=== PATIENT | female | born 1960 | race Caucasian/White ===

== ENCOUNTER → 2024-03-08 08:10 | Outpatient (REF) | payer MEDICARE, SELFPAY | LOC: RAD 08:10 | PROVIDERS: ATTENDING PHYSICIAN Nurse Practitioner | DX: M79.671 Pain in right foot (principal); M79.672 Pain in left foot | CPT/HCPCS: 73630 ==

== ENCOUNTER → 2025-01-17 07:49 | Outpatient (REF) | payer MEDICARE, SELFPAY | LOC: HWRAD 07:49 | PROVIDERS: ATTENDING PHYSICIAN Nurse Practitioner | DX: F17.210 Nicotine dependence, cigarettes, uncomplicated (principal) | CPT/HCPCS: 71271 ==

== ENCOUNTER 2025-02-10 16:59 | Emergency (ER) | payer MEDICARE, SELFPAY ==
[2025-02-10 17:03] VITALS: BP 117/91
[2025-02-10 19:43] VITALS: BMI 22.1
[2025-02-10] MEDS: LIDOCAINE 4% PATCH 1 PATCH TOPICAL (22:32)
[2025-02-10] MEDS: DECADRON 10 MG PO (22:32)
[2025-02-10] MEDS: TORADOL 15 MG IM (22:33)
[2025-02-10] MEDS: VALIUM 5 MG PO (22:34)
--- NOTE | 2025-02-10 22:42 | ED.GENMED ---
History of Present Illness
General
Chief Complaint: Back Pain
Source: patient
Exam Limitations: none
Time Seen by Provider: 02/10/25 21:15
Nursing documentation reviewed up to this point in time: agreed with
History of Present Illness
History of Present Illness:
Patient is a 64-year-old female who presents to the emergency department for evaluation of lower back pain which started yesterday. Patient reports that she was sitting in a metal chair for 3 hours yesterday prior to feeling tightness in her lower
back. Tightness persisted throughout the evening. This morning however patient states she had sudden onset spasming in her lower back while she was seated at work. These 'spasms 'have been coming and going for the past few hours prompting visit
to the emergency department.
Symptoms seem worse in certain positions. Standing and walking sometimes alleviates spasms. She did take ibuprofen at home with minimal improvement in symptoms.
Patient denies any associated fever, abdominal pain, vomiting. She denies any numbness/tingling in lower extremities. No saddle paresthesias. No weakness in lower extremities. Patient denies any recent trauma. No history of IV drug use. She
has not noticed any rash.
Past History
Past History
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
ED Past Surgical History: None
Review of Systems
Review of Systems
Allergies reviewed?: Yes
All Other Systems: ROS reviewed and negative except as documented in HPI and ROS
Phy Exam
Physical Exam
Physical Exam:
Vitals: Mildly hypertensive, otherwise vital signs stable. Afebrile
General: Patient is moderately uncomfortable due to pain
Skin: Warm and dry, no rashes or lesions
Head: Normocephalic, atraumatic
Eyes: Sclera nonicteric.
Throat: Protecting airway
Neck: Normal ROM, no cervical spine tenderness, no meningismus
Cardiac: Regular rate and rhythm, no murmurs.
Pulm: Normal respiratory effort, no wheezes, rales, rhonchi heard on exam
.
Abdomen: No abdominal tenderness.
Back: Paralumbar muscle spasm R>L. No midline spinal tenderness. No rash or ecchymoses.
Extremities: No evidence of cyanosis or edema. Strength 5/5 in bilateral lower extremities. Sensation intact.
Neuro: AAOx3. Grossly intact
Psychiatric: Normal affect.
Course
Orders/Labs/Results
Orders:
Orders
02/10/25 21:53
Dexamethasone [Decadron] 10 mg PO NOW STA
Diazepam [Valium] 5 mg PO NOW STA
Ketorolac [Toradol] 15 mg IM NOW STA
Lidocaine [Lidocaine 4% Patch] 1 patch TOPICAL NOW STA
Apply Lidocaine patch(s) to:: lower back
Vital Signs
Initial and Last Documented VS:
Initial Vital Signs
Temp Pulse Resp BP Pulse Ox
98.5 F 73 18 117/91 98
02/10/25 17:03 02/10/25 17:03 02/10/25 17:03 02/10/25 17:03 02/10/25 17:03
Last Documented Vital Signs
Temp Pulse Resp BP Pulse Ox
98.5 F 73 18 117/91 98
02/10/25 17:03 02/10/25 17:03 02/10/25 17:03 02/10/25 17:03 02/10/25 17:03
MDM/Problems Addressed
Differential Diagnosis Includes:
Not limited to: Lumbar muscle spasm, lumbar strain, spinal stenosis, lumbar radiculopathy, zoster etc.
MDM/Problems Addressed:
64 y.o female who presents with acute onset severe lower back pain described as intermittent muscular spams which began this afternoon. Pain localized to lower back without radiation, worse with certain movements. No associated numbness, weakness,
bowel/bladder incontinence, saddle anesthesia. No recent hx or trauma, fever, or other serious illness. Vitals and physical exam as above.
Overall impression is likely paraspinal lumbar muscle spasm. No midline tenderness, neurologic symptoms concerning for cauda equina, or evidence of vascular catastrophe. Do not feel imaging indicated at this time. Patient tx with toradol, decadron,
valium with some improvement in symptoms. Feel stable for discharge home with conservative management outpatient and primary care f/u. Close return precautions discussed.
Chronic conditions affecting care:
N/A
Acute Exacerbation and/or Progression of Chronic Illness:
N/A
*Pulse Oximetry
Patient hypoxic: no
*EKG
Interpreted by ED Provider?: NA
*Batter Mixer Interpretation
Rate: Batter Mixer- N/A
*Critical Care Note
Total Time (30-74mins, 75-104mins- exclusive of procedures): Not Applicable
ED Attending Note
-
Portions of this chart may have been created with voice recognition software.� Occasional wrong word or��sound alike� substitutions may have occurred due to the inherent limitations of voice recognition software.
Discharge Plan
Departure
Patient Disposition: Home (Routine Discharge)
Date of Disposition: 02/10/25
Time of Disposition: 23:34
Patient with high blood pressure during this ER visit?: Yes
Condition: Good
Covid-19: Not Applicable
Discharge Problem:
Lumbar paraspinal muscle spasm
Instructions: Low back pain - ED discharge instructions, Muscle spasm - ED discharge instructions
Prescriptions:
New
lidocaine 5 % adhesive patch,medicated
1 patch topical DAILY PRN (Reason: low back pain) Qty: 15 0RF
diazepam 5 mg tablet
5 mg PO HS PRN (Reason: muscle spasm) Qty: 7 0RF
No Action
ciprofloxacin HCl [Ciloxan] 0.3 % drops
1 drp ophthalmic (eye) Q4HWA Qty: 1 0RF
Referrals:
Hima Menchaca MD [Family Provider, Family Practice] - Follow up in 2-3 days
Stand Alone Forms: Return to Work
Activity Restrictions/Additional Instructions:
RETURN TO THE EMERGENCY DEPARTMENT WITH ANY FEVERS, CHILLS, INTRACTABLE BACK PAIN, NUMBNESS/TINGLING IN LOWER EXTREMITIES, WEAKNESS IN LOWER EXTREMITIES, LOSS OF BOWEL/BLADDER CONTROL, NUMBNESS SENSATION IN GROIN, OR ANY OTHER CONCERNS
- I suspect your symptoms are likely secondary to a lumbar back muscle spasm.
- As discussed�you should take 600mg of Motrin every 6-8 hours. You can alternate with Tylenol every 3 hours. For severe pain�you can take a Valium, this may cause drowsiness and should not take prior to driving. You can apply a lidocaine patch
to lower back, as well. Apply ice/heat as needed.
- Your prescriptions have been sent to the pharmacy.
- You should rest and limit any activities that further aggravate your symptoms.
- Follow-up with your primary care in a few days for further evaluation/management to ensure that symptoms are improving
Monitor your symptoms closely and return to the emergency department with any acute worsening/new symptoms or any other concerns
Interventions
Interventions:
*Risk Screen - Suicide Last Done: 02/10/25 17:03
*General Assessment Last Done: 02/10/25 17:03
*Neglect/Abuse Screening Last Done: 02/10/25 17:03
*ED- Fall Risk Assessment Last Done: 02/10/25 17:03
*ED COVID-19 Vaccine History Last Done: 02/10/25 17:03
*Nursing Disposition Last Done: 02/11/25 00:06
ED-Musculoskeletal Assessment Last Done: 02/10/25 19:43
Discharge Date and Time
Discharge Date/Time: 02/11/25 00:06
Print Language: SWAZI
== END 2025-02-11 00:06 | disposition home or self-care (01) ==
LOC: EMR 16:59
PROVIDERS: EMERGENCY PHYSICIAN Emergency Medicine; FAMILY PHYSICIAN Family Medicine
DX: M62.830 Muscle spasm of back (principal); R03.0 Elevated blood-pressure reading, without diagnosis of hypertension
CPT/HCPCS: 99284; 96372

== ENCOUNTER → 2025-03-11 16:45 | Outpatient (REF) | payer MEDICARE, SELFPAY | LOC: WDC 16:45 | PROVIDERS: ATTENDING PHYSICIAN Nurse Practitioner | DX: Z12.31 Encounter for screening mammogram for malignant neoplasm of breast (principal) | CPT/HCPCS: 77063; 77067 ==

== ENCOUNTER 2025-04-18 06:20 | Day surgery (SDC) | payer MEDICARE, SELFPAY | END 2025-04-18 13:57 | disposition home or self-care (01) | LOC: GI 06:20 | PROVIDERS: ATTENDING PHYSICIAN Internal Medicine Gastroenterology | DX: Z12.11 Encounter for screening for malignant neoplasm of colon (principal); Z86.0100 Personal history of colon polyps, unspecified | CPT/HCPCS: G0105 ==

== ENCOUNTER 2025-07-25 06:20 | Day surgery (SDC) | payer MEDICARE, SELFPAY | END 2025-07-25 08:41 | disposition home or self-care (01) | LOC: GI 06:20 | PROVIDERS: ATTENDING PHYSICIAN Internal Medicine Gastroenterology | DX: Z12.11 Encounter for screening for malignant neoplasm of colon (principal); Z86.0100 Personal history of colon polyps, unspecified; Z53.8 Procedure and treatment not carried out for other reasons | CPT/HCPCS: G0105; G0378 ==